=== PATIENT | female | born 1975 | race Caucasian/White ===

== ENCOUNTER 2017-12-26 20:12 | Emergency (ER) | payer MEDICARE, MEDICAID ==
[~2017-12-26] VITALS: Ht 167.6 cm; Wt 113.0 kg
[~2017-12-26 20:12] MED LIST: CLIN-79 PO; CLIN-80 PO; CYCL-1 PO; ESOM40CA30 PO; ONDA4TAB12 PO; ONDA4TAB6 PO; PANT40TA4 PO
[2017-12-26] MEDS ORDERED: AZIT-63 PO (21:52)
[2017-12-26] MEDS ORDERED: AFRIN NS (21:52)
[2017-12-26 22:00] VITALS: BP 149/97
== END 2017-12-26 22:03 | disposition home or self-care (01) ==
LOC: ER 20:13
DX: R05 Cough (principal); R09.81 Nasal congestion; R50.9 Fever, unspecified; E86.0 Dehydration; J45.909 Unspecified asthma, uncomplicated; M19.90 Unspecified osteoarthritis, unspecified site; Z86.73 Personal history of transient ischemic attack (TIA), and cerebral infarction without residual deficits; Z87.442 Personal history of urinary calculi; Z86.14 Personal history of Methicillin resistant Staphylococcus aureus infection; Z90.710 Acquired absence of both cervix and uterus; Z88.1 Allergy status to other antibiotic agents; Z88.5 Allergy status to narcotic agent; Z88.2 Allergy status to sulfonamides; Z79.899 Other long term (current) drug therapy
CPT/HCPCS: 99283

== ENCOUNTER 2018-02-28 21:38 | Emergency (ER) | payer MEDICARE, MEDICAID ==
[~2018-02-28] VITALS: Ht 167.6 cm; Wt 109.2 kg
[2018-02-28 21:54] VITALS: BP 119/79
[2018-02-28] MEDS ORDERED: CLIN300C53 PO (22:31)
== END 2018-02-28 22:39 | disposition home or self-care (01) ==
LOC: ER 21:39
DX: L02.413 Cutaneous abscess of right upper limb (principal); J45.909 Unspecified asthma, uncomplicated; M19.90 Unspecified osteoarthritis, unspecified site; Z86.14 Personal history of Methicillin resistant Staphylococcus aureus infection; Z87.442 Personal history of urinary calculi; Z86.73 Personal history of transient ischemic attack (TIA), and cerebral infarction without residual deficits; Z90.710 Acquired absence of both cervix and uterus; Z88.5 Allergy status to narcotic agent; Z88.2 Allergy status to sulfonamides; Z88.8 Allergy status to other drugs, medicaments and biological substances; Z79.899 Other long term (current) drug therapy
CPT/HCPCS: 99283

== ENCOUNTER 2018-03-02 20:11 | Emergency (ER) | payer MEDICARE, MEDICAID ==
[~2018-03-02 20:11] MED LIST changes: +CLIN300C53 PO
[2018-03-02 20:27] VITALS: BP 148/88
[2018-03-02] MEDS ORDERED: naproxen 500mg tablet PO ONE (22:50)
[2018-03-02] MEDS ORDERED: acetaminophen 325mg tablet PO ONE (22:50)
[2018-03-02] MEDS ORDERED: BUPIVAcaine/PF 2.5 mg/ml (0.25%) 30ml vial IJ ONE (22:50)
== END 2018-03-02 23:36 | disposition home or self-care (01) ==
LOC: ER 20:12
DX: L02.413 Cutaneous abscess of right upper limb (principal); J45.909 Unspecified asthma, uncomplicated; Z86.14 Personal history of Methicillin resistant Staphylococcus aureus infection; Z86.73 Personal history of transient ischemic attack (TIA), and cerebral infarction without residual deficits; Z90.710 Acquired absence of both cervix and uterus; Z88.2 Allergy status to sulfonamides; Z88.5 Allergy status to narcotic agent; Z88.1 Allergy status to other antibiotic agents; Z79.899 Other long term (current) drug therapy
CPT/HCPCS: 10060; 99283; A6449; J3490

== ENCOUNTER 2018-03-03 20:29 | Emergency (ER) | payer MEDICARE, MEDICAID ==
[~2018-03-03] VITALS: Ht 167.6 cm; Wt 111.4 kg
[2018-03-03 21:12] LABS: BASOPHILS % (AUTO) 0 % (0-1); EOSINOPHILS % (AUTO) 0 % (0-6); HEMATOCRIT 37.8 % (35.0-45.0); HEMOGLOBIN 13.3 g/dl (12.0-16.0); LYMPHOCYTES # (AUTO) 1.2 X10'3 (1.1-4.8); LYMPHOCYTES % (AUTO) 12.9 % (21-51); MEAN CORPUSCULAR HEMOGLOBIN 32.6 PG (27.0-31.0); MEAN CORPUSCULAR HGB CONC 35.1 % (33.0-36.5); MEAN CORPUSCULAR VOLUME 92.8 FL (78-98); MEAN PLATELET VOLUME 8.9 FL (7.4-10.4); MONOCYTES # (AUTO) 0.3 X10'3 (0-0.9); MONOCYTES % (AUTO) 2.7 % (2-12); NEUTROPHILS # (AUTO) 8.1 X10'3 (1.8-7.7); NEUTROPHILS % (AUTO) 84.4 % (42-75); PLATELET COUNT 211 X10'3 (140-440); RED BLOOD COUNT 4.07 X10'6 (4.20-5.60); RED CELL DISTRIBUTION WIDTH 12.9 % (11.5-14.5); WHITE BLOOD COUNT 9.6 X10'3 (4.5-11.0)
[2018-03-03 21:24] LABS: PARTIAL THROMBOPLASTIN TIME 30 SECONDS (22-32); PROTHROMBIN TIME 10.7 SECONDS (9.0-12.0)
[2018-03-03 21:27] LABS: ALANINE AMINOTRANSFERASE 19 U/L (12-78); ALBUMIN 3.7 G/DL (3.4-5.0); ALBUMIN/GLOBULIN RATIO 1.1 (1.1-1.5); ALKALINE PHOSPHATASE 57 IU/L (46-116); ANION GAP 11 (8-16); ASPARTATE AMINO TRANSFERASE 11 U/L (10-37); BILIRUBIN,TOTAL 0.5 MG/DL (0.1-1.0); BLOOD UREA NITROGEN 11 MG/DL (7-18); BUN/CREATININE RATIO 10.4 (6.6-38.0); CALCIUM 8.6 MG/DL (8.5-10.1); CHLORIDE 105 MMOL/L (99-107); CREATININE 1.06 MG/DL (0.40-0.90); GLUCOSE 128 MG/DL (70-104); POTASSIUM 3.9 MMOL/L (3.5-5.1); SODIUM 139 MMOL/L (135-145); TOTAL CARBON DIOXIDE 23.3 MMOL/L (24-32); TOTAL PROTEIN 7.1 G/DL (6.4-8.2); eGFR 57 ML/MIN
[2018-03-04 00:12] VITALS: BP 123/61
== END 2018-03-04 01:24 | disposition home or self-care (01) ==
LOC: ER 20:30
DX: L02.413 Cutaneous abscess of right upper limb (principal); J45.909 Unspecified asthma, uncomplicated; M19.90 Unspecified osteoarthritis, unspecified site; Z86.14 Personal history of Methicillin resistant Staphylococcus aureus infection; Z87.442 Personal history of urinary calculi; Z86.73 Personal history of transient ischemic attack (TIA), and cerebral infarction without residual deficits; Z90.710 Acquired absence of both cervix and uterus; Z88.0 Allergy status to penicillin; Z88.2 Allergy status to sulfonamides; Z88.5 Allergy status to narcotic agent; Z79.899 Other long term (current) drug therapy
CPT/HCPCS: 36415; 71045; 80053; 83605; 84145; 85025; 85610; 85730; 87040; 99285

== ENCOUNTER 2018-05-29 19:12 | Emergency (ER) | payer MEDICARE, MEDICAID ==
[~2018-05-29] VITALS: Ht 167.6 cm; Wt 113.7 kg
[~2018-05-29 19:12] MED LIST changes: -CLIN-79 PO; -CLIN-80 PO; +CLIN150C8 PO; -CLIN300C53 PO; +CLIN300C85 PO
[2018-05-29 19:47] LABS: BASOPHILS % (AUTO) 0.2 % (0-1); EOSINOPHILS % (AUTO) 0 % (0-6); HEMATOCRIT 39.6 % (35.0-45.0); HEMOGLOBIN 13.7 g/dl (12.0-16.0); LYMPHOCYTES # (AUTO) 2.6 X10'3 (1.1-4.8); LYMPHOCYTES % (AUTO) 29.2 % (21-51); MEAN CORPUSCULAR HEMOGLOBIN 32.2 PG (27.0-31.0); MEAN CORPUSCULAR HGB CONC 34.7 % (33.0-36.5); MEAN PLATELET VOLUME 9.1 FL (7.4-10.4); MONOCYTES # (AUTO) 0.4 X10'3 (0-0.9); MONOCYTES % (AUTO) 4.2 % (2-12); NEUTROPHILS # (AUTO) 5.9 X10'3 (1.8-7.7); NEUTROPHILS % (AUTO) 66.4 % (42-75); PLATELET COUNT 235 X10'3 (140-440); RED BLOOD COUNT 4.26 X10'6 (4.20-5.60); RED CELL DISTRIBUTION WIDTH 13.2 % (11.5-14.5); WHITE BLOOD COUNT 8.8 X10'3 (4.5-11.0)
[2018-05-29 19:58] LABS: CLARITY,URINE CLEAR (Clear); COLOR,URINE YELLOW (Yellow); GLUCOSE, URINE NEGATIVE (Neg); KETONES,URINE NEGATIVE (Neg); LEUKOCYTE ESTERASE ,URINE NEGATIVE (Neg); NITRITES, URINE NEGATIVE (Neg); OCCULT BLOOD,URINE NEGATIVE (Neg); PH,URINE 6.5 (4.8-8.0); PROTEIN,URINE NEGATIVE (Neg); UROBILINOGEN,URINE 0.2 E.U/dL (0.2-1.0)
[2018-05-29 19:59] LABS: UA COLLECTION TYPE CLN CATCH MIDSTREAM
[2018-05-29] MEDS ORDERED: normal saline 1000ML IV soln IVB ONE (20:00)
[2018-05-29] MEDS ORDERED: ondansetron/PF 4mg/2ml inj IV ONE (20:00)
[2018-05-29] MEDS ORDERED: ketorolac trometh. 30mg/ml inj. IV ONE (20:00)
[2018-05-29 20:02] LABS: ALANINE AMINOTRANSFERASE 28 U/L (12-78); ALBUMIN/GLOBULIN RATIO 1.3 (1.1-1.5); ALKALINE PHOSPHATASE 53 IU/L (46-116); ANION GAP 8 (8-16); ASPARTATE AMINO TRANSFERASE 18 U/L (10-37); BILIRUBIN,TOTAL 0.3 MG/DL (0.1-1.0); BLOOD UREA NITROGEN 12 MG/DL (7-18); BUN/CREATININE RATIO 11.5 (6.6-38.0); CALCIUM 9.3 MG/DL (8.5-10.1); CHLORIDE 106 MMOL/L (99-107); CREATININE 1.04 MG/DL (0.40-0.90); GLUCOSE 92 MG/DL (70-104); SODIUM 139 MMOL/L (135-145); TOTAL CARBON DIOXIDE 24.9 MMOL/L (24-32); TOTAL PROTEIN 7.1 G/DL (6.4-8.2); eGFR 58 ML/MIN
[2018-05-29 20:13] LABS: PROTHROMBIN TIME 10.5 SECONDS (9.0-12.0)
[2018-05-29] MEDS ORDERED: HYDR-565 PO (21:38)
[2018-05-29] MEDS ORDERED: HYDROcodone/acetaminophen 10/325mg tab PO ONE (21:40)
[2018-05-29 21:45] VITALS: BP 162/71
== END 2018-05-29 21:53 | disposition home or self-care (01) ==
LOC: ER 19:12
DX: R10.11 Right upper quadrant pain (principal); F31.9 Bipolar disorder, unspecified; J45.909 Unspecified asthma, uncomplicated; Z90.710 Acquired absence of both cervix and uterus; Z98.890 Other specified postprocedural states; Z88.5 Allergy status to narcotic agent; Z88.8 Allergy status to other drugs, medicaments and biological substances; Z88.1 Allergy status to other antibiotic agents; Z79.2 Long term (current) use of antibiotics; Z79.899 Other long term (current) drug therapy
CPT/HCPCS: 36415; 76700; 80053; 81003; 85025; 85610; 96374; 96375; 99285; J1885; J2405; J7030

== ENCOUNTER 2018-11-18 08:56 | Emergency (ER) | payer MEDICARE, MEDICAID ==
[~2018-11-18] VITALS: Ht 167.6 cm; Wt 114.0 kg
[2018-11-18 09:07] VITALS: BP 147/92
[2018-11-18 09:30] LABS: URINE HCG NEGATIVE (NEG)
[2018-11-18 09:31] LABS: CLARITY,URINE CLEAR (Clear); COLOR,URINE YELLOW (Yellow); GLUCOSE, URINE NEGATIVE (Neg); KETONES,URINE TRACE mg/dl (Neg); LEUKOCYTE ESTERASE ,URINE NEGATIVE (Neg); NITRITES, URINE NEGATIVE (Neg); OCCULT BLOOD,URINE MODERATE (Neg); PROTEIN,URINE NEGATIVE (Neg); UROBILINOGEN,URINE 0.2 E.U/dL (0.2-1.0)
[2018-11-18 09:32] LABS: UA COLLECTION TYPE CLN CATCH MIDSTREAM
[2018-11-18 09:43] LABS: MUCUS STRANDS MANY /LPF (Neg); SQUAMOUS EPITHELIAL CELL,UR MANY /LPF (FEW)
[2018-11-18 09:44] LABS: BACTERIA,URINE 1+ /HPF (Neg); WBC,URINE 0-4 /HPF (0-4)
[2018-11-18] MEDS ORDERED: ketorolac tromethamine 15mg/ml inj. IV ONE (10:05)
[2018-11-18] MEDS ORDERED: normal saline 1000ml 1,000 ML IV ONE (10:05)
[2018-11-18] MEDS ORDERED: IBUP-1985 PO (11:14)
[2018-11-18] MEDS ORDERED: FLO0.4C PO (11:14)
== END 2018-11-18 11:27 | disposition home or self-care (01) ==
LOC: ER 08:57
DX: N20.0 Calculus of kidney (principal); Z87.442 Personal history of urinary calculi; J45.909 Unspecified asthma, uncomplicated; M19.90 Unspecified osteoarthritis, unspecified site; Z86.14 Personal history of Methicillin resistant Staphylococcus aureus infection; Z86.73 Personal history of transient ischemic attack (TIA), and cerebral infarction without residual deficits; Z90.710 Acquired absence of both cervix and uterus; Z88.1 Allergy status to other antibiotic agents; Z88.5 Allergy status to narcotic agent; Z88.2 Allergy status to sulfonamides; Z79.899 Other long term (current) drug therapy
CPT/HCPCS: 74176; 81001; 81025; 96374; 99284; J1885; J7030

== ENCOUNTER 2018-12-03 14:22 | Emergency (ER) | payer MEDICARE, MEDICAID ==
[~2018-12-03] VITALS: Ht 167.6 cm; Wt 114.0 kg
[~2018-12-03 14:22] MED LIST changes: +FLO0.4C PO; +IBUP-1985 PO
[2018-12-03 14:32] VITALS: BP 119/86
[2018-12-03 15:11] LABS: BASOPHILS % (AUTO) 0.2 % (0-1); EOSINOPHILS % (AUTO) 0.4 % (0-6); HEMATOCRIT 40.7 % (35.0-45.0); HEMOGLOBIN 14.1 g/dl (12.0-16.0); LYMPHOCYTES # (AUTO) 2.2 X10'3 (1.1-4.8); LYMPHOCYTES % (AUTO) 23.2 % (21-51); MEAN CORPUSCULAR HEMOGLOBIN 32.2 PG (27.0-31.0); MEAN CORPUSCULAR HGB CONC 34.5 % (33.0-36.5); MEAN CORPUSCULAR VOLUME 93.3 FL (78-98); MEAN PLATELET VOLUME 8.7 FL (7.4-10.4); MONOCYTES # (AUTO) 0.4 X10'3 (0-0.9); MONOCYTES % (AUTO) 3.8 % (2-12); NEUTROPHILS # (AUTO) 6.9 X10'3 (1.8-7.7); NEUTROPHILS % (AUTO) 72.4 % (42-75); PLATELET COUNT 272 X10'3 (140-440); RED BLOOD COUNT 4.36 X10'6 (4.20-5.60); RED CELL DISTRIBUTION WIDTH 12.4 % (11.5-14.5); WHITE BLOOD COUNT 9.6 X10'3 (4.5-11.0)
[2018-12-03 15:23] LABS: PROTHROMBIN TIME 10.5 SECONDS (9.0-12.0)
[2018-12-03 15:26] LABS: ALANINE AMINOTRANSFERASE 24 U/L (12-78); ALBUMIN 3.7 G/DL (3.4-5.0); ALBUMIN/GLOBULIN RATIO 1.1 (1.1-1.5); ALKALINE PHOSPHATASE 55 IU/L (46-116); ANION GAP 7 (8-16); ASPARTATE AMINO TRANSFERASE 13 U/L (10-37); BILIRUBIN,TOTAL 0.3 MG/DL (0.1-1.0); BLOOD UREA NITROGEN 10 MG/DL (7-18); BUN/CREATININE RATIO 9.9 (6.6-38.0); CALCIUM 8.4 MG/DL (8.5-10.1); CHLORIDE 105 MMOL/L (99-107); CREATININE 1.01 MG/DL (0.40-0.90); GLUCOSE 79 MG/DL (70-104); SODIUM 140 MMOL/L (135-145); TOTAL CARBON DIOXIDE 28.4 MMOL/L (24-32); eGFR 60 ML/MIN
[2018-12-03 15:38] LABS: URINE HCG NEGATIVE (NEG)
[2018-12-03 15:39] LABS: CLARITY,URINE SLIGHTLY CLOUDY (Clear); COLOR,URINE YELLOW (Yellow); GLUCOSE, URINE NEGATIVE (Neg); KETONES,URINE TRACE mg/dl (Neg); LEUKOCYTE ESTERASE ,URINE NEGATIVE (Neg); NITRITES, URINE NEGATIVE (Neg); OCCULT BLOOD,URINE LARGE (Neg); PROTEIN,URINE NEGATIVE (Neg); UROBILINOGEN,URINE 0.2 E.U/dL (0.2-1.0)
[2018-12-03 15:40] LABS: UA COLLECTION TYPE CLN CATCH MIDSTREAM
[2018-12-03 15:48] LABS: MUCUS STRANDS MODERATE /LPF (Neg); SQUAMOUS EPITHELIAL CELL,UR MANY /LPF (FEW)
[2018-12-03 15:53] LABS: RBC,URINE TNTC /HPF (0-2)
[2018-12-03 15:56] LABS: BACTERIA,URINE 1+ /HPF (Neg)
[2018-12-03 15:57] LABS: WBC,URINE 0-4 /HPF (0-4)
[2018-12-03] MEDS ORDERED: ketorolac tromethamine 15mg/ml inj. IM ONE (16:50)
[2018-12-03] MEDS ORDERED: HYDROcodone/acetaminophen 10/325mg tab PO ONE (17:35)
[2018-12-03] MEDS ORDERED: FLO0.4C PO (17:35)
== END 2018-12-03 17:59 | disposition home or self-care (01) ==
LOC: ER 14:22
DX: N20.0 Calculus of kidney (principal); Z87.442 Personal history of urinary calculi; J45.909 Unspecified asthma, uncomplicated; M19.90 Unspecified osteoarthritis, unspecified site; Z86.14 Personal history of Methicillin resistant Staphylococcus aureus infection; Z86.73 Personal history of transient ischemic attack (TIA), and cerebral infarction without residual deficits; Z90.710 Acquired absence of both cervix and uterus; Z88.2 Allergy status to sulfonamides; Z88.1 Allergy status to other antibiotic agents; Z88.5 Allergy status to narcotic agent; Z79.899 Other long term (current) drug therapy
CPT/HCPCS: 36415; 80053; 81001; 81025; 85025; 85610; 96372; 99283; J1885

== ENCOUNTER 2018-12-05 21:54 | Emergency (ER) | payer MEDICARE, MEDICAID ==
[~2018-12-05] VITALS: Ht 167.6 cm; Wt 113.5 kg
[2018-12-05 22:05] VITALS: BP 144/90
[2018-12-05] MEDS ORDERED: fentaNYL/PF 50MCG/1 ML 2ML syringe IV ONE (22:20)
[2018-12-05] MEDS ORDERED: normal saline 1000ML IV soln IVB ONE (22:20)
[2018-12-05] MEDS ORDERED: ondansetron/PF 4mg/2ml inj IV ONE (22:20)
[2018-12-05] MEDS ORDERED: ketorolac tromethamine 15mg/ml inj. IV ONE (22:30)
[2018-12-05 22:33] LABS: CLARITY,URINE CLOUDY (Clear); GLUCOSE, URINE NEGATIVE (Neg); KETONES,URINE TRACE mg/dl (Neg); LEUKOCYTE ESTERASE ,URINE TRACE (Neg); OCCULT BLOOD,URINE LARGE (Neg); PROTEIN,URINE 100 mg/dl (Neg)
[2018-12-05 22:41] LABS: UA COLLECTION TYPE NON-SPECIFIED
[2018-12-05 22:42] LABS: COLOR,URINE DARK YELLOW (Yellow); NITRITES, URINE NEGATIVE (Neg)
[2018-12-05 22:42] LABS: BASOPHILS # (AUTO) 0.1 X10'3 (0-0.2); BASOPHILS % (AUTO) 0.5 % (0-1); EOSINOPHILS # (AUTO) 0.1 X10'3 (0-0.9); EOSINOPHILS % (AUTO) 0.6 % (0-6); HEMATOCRIT 41.2 % (35.0-45.0); HEMOGLOBIN 14.1 g/dl (12.0-16.0); LYMPHOCYTES # (AUTO) 3.2 X10'3 (1.1-4.8); MEAN CORPUSCULAR HEMOGLOBIN 31.9 PG (27.0-31.0); MEAN CORPUSCULAR HGB CONC 34.3 % (33.0-36.5); MEAN CORPUSCULAR VOLUME 93.1 FL (78-98); MEAN PLATELET VOLUME 8.7 FL (7.4-10.4); MONOCYTES # (AUTO) 0.4 X10'3 (0-0.9); MONOCYTES % (AUTO) 4.2 % (2-12); NEUTROPHILS # (AUTO) 6.9 X10'3 (1.8-7.7); NEUTROPHILS % (AUTO) 64.7 % (42-75); PLATELET COUNT 299 X10'3 (140-440); RED BLOOD COUNT 4.43 X10'6 (4.20-5.60); RED CELL DISTRIBUTION WIDTH 12.4 % (11.5-14.5); WHITE BLOOD COUNT 10.6 X10'3 (4.5-11.0)
[2018-12-05 22:43] LABS: BACTERIA,URINE FEW /HPF (Neg); MUCUS STRANDS FEW /LPF (Neg); RBC,URINE TNTC /HPF (0-2); SQUAMOUS EPITHELIAL CELL,UR FEW /LPF (FEW)
[2018-12-05 22:47] LABS: ALANINE AMINOTRANSFERASE 20 U/L (12-78); ALBUMIN 3.8 G/DL (3.4-5.0); ALBUMIN/GLOBULIN RATIO 1.1 (1.1-1.5); ALKALINE PHOSPHATASE 56 IU/L (46-116); ANION GAP 13 (8-16); ASPARTATE AMINO TRANSFERASE 12 U/L (10-37); BILIRUBIN,TOTAL 0.2 MG/DL (0.1-1.0); BLOOD UREA NITROGEN 12 MG/DL (7-18); BUN/CREATININE RATIO 11.5 (6.6-38.0); CALCIUM 8.7 MG/DL (8.5-10.1); CHLORIDE 106 MMOL/L (99-107); CREATININE 1.04 MG/DL (0.40-0.90); GLUCOSE 133 MG/DL (70-104); POTASSIUM 3.8 MMOL/L (3.5-5.1); SODIUM 141 MMOL/L (135-145); TOTAL CARBON DIOXIDE 21.7 MMOL/L (24-32); TOTAL PROTEIN 7.2 G/DL (6.4-8.2); eGFR 58 ML/MIN
[2018-12-05] MEDS ORDERED: HYDROcodone/acetaminophen 10/325mg tab PO ONE (23:15)
[2018-12-05] MEDS ORDERED: FLO0.4C PO (23:32)
[2018-12-05] MEDS ORDERED: CIPR-259 PO (23:32)
[2018-12-05] MEDS ORDERED: HYDR-3965 PO (23:32)
== END 2018-12-05 23:49 | disposition home or self-care (01) ==
LOC: ER 21:55
DX: N23 Unspecified renal colic (principal); Z87.442 Personal history of urinary calculi; J45.909 Unspecified asthma, uncomplicated; M19.90 Unspecified osteoarthritis, unspecified site; Z86.73 Personal history of transient ischemic attack (TIA), and cerebral infarction without residual deficits; Z86.14 Personal history of Methicillin resistant Staphylococcus aureus infection; Z90.710 Acquired absence of both cervix and uterus; Z88.2 Allergy status to sulfonamides; Z88.5 Allergy status to narcotic agent; Z88.1 Allergy status to other antibiotic agents; Z79.899 Other long term (current) drug therapy
CPT/HCPCS: 36415; 80053; 81001; 85025; 87088; 96374; 96375; 99283; J1885; J2405; J3010; J7030

== ENCOUNTER 2019-02-10 07:58 | Emergency (ER) | payer MEDICARE, MEDICAID ==
[~2019-02-10] VITALS: Ht 167.6 cm; Wt 113.0 kg
[~2019-02-10 07:58] MED LIST changes: +CLIN-96 PO; -CLIN300C85 PO; -FLO0.4C PO
[2019-02-10 08:52] LABS: CLARITY,URINE CLOUDY (Clear); COLOR,URINE YELLOW (Yellow); GLUCOSE, URINE NEGATIVE (Neg); KETONES,URINE TRACE mg/dl (Neg); LEUKOCYTE ESTERASE ,URINE NEGATIVE (Neg); NITRITES, URINE NEGATIVE (Neg); OCCULT BLOOD,URINE NEGATIVE (Neg); PH,URINE 8.5 (4.8-8.0); PROTEIN,URINE TRACE mg/dl (Neg); UROBILINOGEN,URINE 0.2 E.U/dL (0.2-1.0)
[2019-02-10 08:57] LABS: UA COLLECTION TYPE CLN CATCH MIDSTREAM
[2019-02-10 08:59] LABS: RBC,URINE NONE SEEN /HPF (0-2); WBC,URINE 0-4 /HPF (0-4)
[2019-02-10 09:00] LABS: BACTERIA,URINE 1+ /HPF (Neg); SQUAMOUS EPITHELIAL CELL,UR MANY /LPF (FEW)
[2019-02-10 09:06] LABS: URINE HCG NEGATIVE (NEG)
[2019-02-10 09:06] LABS: BASOPHILS % (AUTO) 0.2 % (0-1); EOSINOPHILS % (AUTO) 0 % (0-6); HEMATOCRIT 41.1 % (35.0-45.0); HEMOGLOBIN 14.3 g/dl (12.0-16.0); LYMPHOCYTES # (AUTO) 0.5 X10'3 (1.1-4.8); LYMPHOCYTES % (AUTO) 5.6 % (21-51); MEAN CORPUSCULAR HEMOGLOBIN 32.1 PG (27.0-31.0); MEAN CORPUSCULAR HGB CONC 34.8 g/dL (33.0-36.5); MEAN CORPUSCULAR VOLUME 92.2 FL (78-98); MONOCYTES # (AUTO) 0.4 X10'3 (0-0.9); MONOCYTES % (AUTO) 4.9 % (2-12); NEUTROPHILS # (AUTO) 7.3 X10'3 (1.8-7.7); NEUTROPHILS % (AUTO) 89.3 % (42-75); PLATELET COUNT 194 X10'3 (140-440); RED BLOOD COUNT 4.46 X10'6 (4.20-5.60); WHITE BLOOD COUNT 8.1 X10'3 (4.5-11.0)
[2019-02-10 09:29] LABS: PROTHROMBIN TIME 10.4 SECONDS (9.0-12.0)
[2019-02-10 09:31] LABS: ALANINE AMINOTRANSFERASE 21 U/L (12-78); ALBUMIN 3.6 G/DL (3.4-5.0); ALBUMIN/GLOBULIN RATIO 1.3 (1.1-1.5); ALKALINE PHOSPHATASE 50 IU/L (46-116); ANION GAP 9 (8-16); ASPARTATE AMINO TRANSFERASE 13 U/L (10-37); BILIRUBIN,TOTAL 0.4 MG/DL (0.1-1.0); BLOOD UREA NITROGEN 13 MG/DL (7-18); BUN/CREATININE RATIO 14.3 (6.6-38.0); CALCIUM 8.6 MG/DL (8.5-10.1); CHLORIDE 105 MMOL/L (99-107); CREATININE 0.91 MG/DL (0.40-0.90); GLUCOSE 118 MG/DL (70-104); SODIUM 139 MMOL/L (135-145); TOTAL PROTEIN 6.4 G/DL (6.4-8.2); eGFR 67 ML/MIN
[2019-02-10] MEDS ORDERED: ondansetron/PF 4mg/2ml inj IV ONE ×2 (09:35→09:55)
[2019-02-10] MEDS ORDERED: normal saline 1000ML IV soln IVB ONE ×2 (09:35→09:55)
[2019-02-10] MEDS ORDERED: HYDROmorphone 1 mg/ml syringe IV ONE (09:55)
[2019-02-10] MEDS ORDERED: ONDA4TAB6 PO (10:42)
[2019-02-10 11:10] VITALS: BP 149/84
[2019-02-10 11:59] LABS: LIPASE 75 U/L (73-393)
== END 2019-02-10 11:12 | disposition home or self-care (01) ==
LOC: ER 07:59
DX: K52.9 Noninfective gastroenteritis and colitis, unspecified (principal); I88.0 Nonspecific mesenteric lymphadenitis; R00.0 Tachycardia, unspecified; J45.909 Unspecified asthma, uncomplicated; M19.90 Unspecified osteoarthritis, unspecified site; Z88.1 Allergy status to other antibiotic agents; Z88.2 Allergy status to sulfonamides; Z88.6 Allergy status to analgesic agent; Z79.899 Other long term (current) drug therapy; Z86.73 Personal history of transient ischemic attack (TIA), and cerebral infarction without residual deficits; Z86.718 Personal history of other venous thrombosis and embolism; Z86.14 Personal history of Methicillin resistant Staphylococcus aureus infection; Z87.42 Personal history of other diseases of the female genital tract; Z87.442 Personal history of urinary calculi; Z90.710 Acquired absence of both cervix and uterus; Z98.890 Other specified postprocedural states
CPT/HCPCS: 36415; 74176; 80053; 81001; 81025; 83690; 85025; 85610; 96361; 96374; 96375; 99284; J1170; J2405; J7030

== ENCOUNTER 2019-09-19 02:49 | Emergency (ER) | payer MEDICARE, MEDICAID ==
[~2019-09-19] VITALS: Ht 167.6 cm; Wt 113.0 kg
[~2019-09-19 02:49] MED LIST changes: +CLIN-90 PO; -CLIN-96 PO; -ESOM40CA30 PO; +ESOM40CA49 PO
[2019-09-19] MEDS ORDERED: ketorolac trometh. 30mg/ml inj. IM ONE (03:05)
[2019-09-19] MEDS ORDERED: IBUP-1984 PO (03:28)
[2019-09-19 03:56] VITALS: BP 146/92
== END 2019-09-19 03:58 | disposition home or self-care (01) ==
LOC: ER 02:50
DX: M25.511 Pain in right shoulder (principal); J45.909 Unspecified asthma, uncomplicated; M19.90 Unspecified osteoarthritis, unspecified site; Z86.73 Personal history of transient ischemic attack (TIA), and cerebral infarction without residual deficits; Z98.890 Other specified postprocedural states; Z90.710 Acquired absence of both cervix and uterus; Z87.442 Personal history of urinary calculi; Z79.899 Other long term (current) drug therapy; Z88.2 Allergy status to sulfonamides; Z88.5 Allergy status to narcotic agent; Z88.1 Allergy status to other antibiotic agents
CPT/HCPCS: 73030; 96372; 99283; J1885

== ENCOUNTER 2019-12-25 16:21 | Emergency (ER) | payer MEDICARE, MEDICAID ==
[~2019-12-25] VITALS: Ht 167.6 cm; Wt 122.3 kg
[2019-12-25 16:26] VITALS: BP 149/74
[2019-12-25] MEDS ORDERED: DOXY100C76 PO (17:56)
== END 2019-12-25 18:24 | disposition home or self-care (01) ==
LOC: ER 16:22
DX: L03.314 Cellulitis of groin (principal); J45.909 Unspecified asthma, uncomplicated; M19.90 Unspecified osteoarthritis, unspecified site; Z98.890 Other specified postprocedural states; Z90.710 Acquired absence of both cervix and uterus; Z86.73 Personal history of transient ischemic attack (TIA), and cerebral infarction without residual deficits; Z86.14 Personal history of Methicillin resistant Staphylococcus aureus infection; Z88.2 Allergy status to sulfonamides; Z88.1 Allergy status to other antibiotic agents; Z88.5 Allergy status to narcotic agent; Z79.899 Other long term (current) drug therapy
CPT/HCPCS: 99283

== ENCOUNTER 2020-01-17 19:16 | Emergency (ER) | payer MEDICARE, MEDICAID ==
[~2020-01-17] VITALS: Ht 167.6 cm; Wt 118.2 kg
[~2020-01-17 19:16] MED LIST changes: -CLIN-90 PO; +CLIN-97 PO
[2020-01-17] MEDS ORDERED: ipratropium/albuterol 3ml nebule NEB ONE (19:50)
[2020-01-17] MEDS ORDERED: predniSONE 20 mg tablet PO ONE (19:50)
[2020-01-17] MEDS ORDERED: normal saline 1000ML IV soln IVB ONE (19:50)
[2020-01-17] MEDS ORDERED: benzonatate 100mg capsule PO ONE (19:50)
[2020-01-17] MEDS ORDERED: oseltamivir phos 75mg capsule PO ONE (19:50)
--- NOTE | 2020-01-17 20:00 | NUR ---
chest x ray at bedside complete
[2020-01-17 20:10] LABS: BASOPHILS % (AUTO) 0.4 % (0-1); EOSINOPHILS % (AUTO) 0 % (0-6); HEMATOCRIT 38.1 % (35.0-45.0); HEMOGLOBIN 13.2 g/dl (12.0-16.0); LYMPHOCYTES # (AUTO) 0.6 X10'3 (1.1-4.8); LYMPHOCYTES % (AUTO) 8.4 % (21-51); MEAN CORPUSCULAR HGB CONC 34.7 g/dL (33.0-36.5); MEAN CORPUSCULAR VOLUME 92.2 FL (78-98); MEAN PLATELET VOLUME 8.5 FL (7.4-10.4); MONOCYTES # (AUTO) 0.4 X10'3 (0-0.9); MONOCYTES % (AUTO) 5.3 % (2-12); NEUTROPHILS # (AUTO) 5.9 X10'3 (1.8-7.7); NEUTROPHILS % (AUTO) 85.9 % (42-75); PLATELET COUNT 234 X10'3 (140-440); RED BLOOD COUNT 4.13 X10'6 (4.20-5.60); RED CELL DISTRIBUTION WIDTH 12.8 % (11.5-14.5); WHITE BLOOD COUNT 6.9 X10'3 (4.5-11.0)
[2020-01-17 20:21] LABS: ALANINE AMINOTRANSFERASE 13 U/L (12-78); ALBUMIN 3.8 G/DL (3.4-5.0); ALBUMIN/GLOBULIN RATIO 1.2 (1.1-1.5); ALKALINE PHOSPHATASE 57 IU/L (46-116); ANION GAP 9 (8-16); ASPARTATE AMINO TRANSFERASE 9 U/L (10-37); BILIRUBIN,TOTAL 0.2 MG/DL (0.1-1.0); BLOOD UREA NITROGEN 11 MG/DL (7-18); BUN/CREATININE RATIO 9.1 (6.6-38.0); CALCIUM 8.9 MG/DL (8.5-10.1); CHLORIDE 104 MMOL/L (99-107); CREATININE 1.21 MG/DL (0.40-0.90); GLUCOSE 115 MG/DL (70-104); POTASSIUM 3.7 MMOL/L (3.5-5.1); SODIUM 137 MMOL/L (135-145); TOTAL CARBON DIOXIDE 24.5 MMOL/L (24-32); TOTAL PROTEIN 6.9 G/DL (6.4-8.2); eGFR 48 ML/MIN
--- NOTE | 2020-01-17 20:29 | NUR ---
reported to YANY Mccollum that patients temp is at 99.7
[2020-01-17 20:34] LABS: URINE HCG NEGATIVE (NEG)
[2020-01-17 20:37] LABS: CLARITY,URINE CLEAR (Clear); COLOR,URINE YELLOW (Yellow); GLUCOSE, URINE NEGATIVE (Neg); KETONES,URINE NEGATIVE (Neg); LEUKOCYTE ESTERASE ,URINE NEGATIVE (Neg); NITRITES, URINE NEGATIVE (Neg); OCCULT BLOOD,URINE NEGATIVE (Neg); PROTEIN,URINE NEGATIVE (Neg); UROBILINOGEN,URINE 0.2 E.U/dL (0.2-1.0)
[2020-01-17 20:39] LABS: UA COLLECTION TYPE CLN CATCH MIDSTREAM
[2020-01-17] MEDS ORDERED: ALBU8.5H8 IH (20:45)
[2020-01-17] MEDS ORDERED: BENZ-16 PO (20:45)
[2020-01-17] MEDS ORDERED: PRED20TA PO (20:45)
[2020-01-17] MEDS ORDERED: TAM75C PO (20:45)
[2020-01-17 21:13] VITALS: BP 130/82
== END 2020-01-17 21:00 | disposition home or self-care (01) ==
LOC: ER 19:18
DX: J11.1 Influenza due to unidentified influenza virus with other respiratory manifestations (principal); M19.90 Unspecified osteoarthritis, unspecified site; Z86.73 Personal history of transient ischemic attack (TIA), and cerebral infarction without residual deficits; Z87.442 Personal history of urinary calculi; Z86.14 Personal history of Methicillin resistant Staphylococcus aureus infection; Z98.890 Other specified postprocedural states; Z90.710 Acquired absence of both cervix and uterus
CPT/HCPCS: 36415; 71045; 80053; 81003; 81025; 84145; 85025; 87502; 87503; 94640; 99284; J7030; J7512; 94760

== ENCOUNTER 2020-08-26 14:35 | Emergency (ER) | payer MEDICARE, MEDICAID ==
[~2020-08-26] VITALS: Ht 167.6 cm; Wt 116.0 kg
[~2020-08-26 14:35] MED LIST changes: +ALBU8.5H8 IH; +BENZ-16 PO; -PANT40TA4 PO; +PANT40TA54 PO
--- NOTE | 2020-08-26 16:27 | NUR ---
Patient resting supine in bed without distress. Patient updated on POC.
[2020-08-26] MEDS ORDERED: ketorolac tromethamine 15mg/ml inj. IM ONE (17:05)
[2020-08-26] MEDS ORDERED: CYCL-1 PO (17:10)
[2020-08-26 17:28] VITALS: BP 156/93
== END 2020-08-26 17:29 | disposition home or self-care (01) ==
LOC: ER 14:36
DX: M54.41 Lumbago with sciatica, right side (principal); F41.9 Anxiety disorder, unspecified; F31.9 Bipolar disorder, unspecified; Z86.14 Personal history of Methicillin resistant Staphylococcus aureus infection; Z86.73 Personal history of transient ischemic attack (TIA), and cerebral infarction without residual deficits; Z90.49 Acquired absence of other specified parts of digestive tract; Z90.710 Acquired absence of both cervix and uterus; Z88.2 Allergy status to sulfonamides; Z88.5 Allergy status to narcotic agent; Z79.2 Long term (current) use of antibiotics; Z79.899 Other long term (current) drug therapy
CPT/HCPCS: 96372; 99283; J1885

== ENCOUNTER 2020-09-01 19:47 | Emergency (ER) | payer MEDICARE, MEDICAID ==
[~2020-09-01] VITALS: Ht 167.6 cm; Wt 118.2 kg
[2020-09-01 19:52] VITALS: BP 138/86
[2020-09-01] MEDS ORDERED: ketorolac tromethamine 15mg/ml inj. IM ONE (20:40)
[2020-09-01] MEDS ORDERED: traMADol 50MG tablet PO ONE (21:15)
[2020-09-01] MEDS ORDERED: TRAM50TA2 PO (21:32)
== END 2020-09-01 21:39 | disposition home or self-care (01) ==
LOC: ER 19:48
DX: M54.41 Lumbago with sciatica, right side (principal); I63.9 Cerebral infarction, unspecified; J45.909 Unspecified asthma, uncomplicated; N20.0 Calculus of kidney; M19.90 Unspecified osteoarthritis, unspecified site; F41.9 Anxiety disorder, unspecified; F31.9 Bipolar disorder, unspecified; F32.9 Major depressive disorder, single episode, unspecified; Z88.2 Allergy status to sulfonamides; Z88.1 Allergy status to other antibiotic agents; Z88.5 Allergy status to narcotic agent; Z88.8 Allergy status to other drugs, medicaments and biological substances; Z79.899 Other long term (current) drug therapy; Z98.890 Other specified postprocedural states; W18.39XA Other fall on same level, initial encounter; Y93.89 Activity, other specified; Y92.89 Other specified places as the place of occurrence of the external cause; Y99.8 Other external cause status
CPT/HCPCS: 73502; 96372; 99284; J1885

== ENCOUNTER 2020-09-23 12:11 | Emergency (ER) | payer MEDICARE, MEDICAID ==
[~2020-09-23] VITALS: Ht 167.6 cm; Wt 113.7 kg
[2020-09-23 12:30] VITALS: BP 138/69
[2020-09-23 13:08] LABS: BASOPHILS % (AUTO) 0.2 % (0-1); EOSINOPHILS % (AUTO) 0 % (0-6); HEMATOCRIT 43.1 % (35.0-45.0); HEMOGLOBIN 14.7 g/dl (12.0-16.0); LYMPHOCYTES # (AUTO) 2.1 X10'3 (1.1-4.8); LYMPHOCYTES % (AUTO) 24.8 % (21-51); MEAN CORPUSCULAR HGB CONC 34.1 g/dL (33.0-36.5); MEAN CORPUSCULAR VOLUME 93.8 FL (78-98); MEAN PLATELET VOLUME 8.5 FL (7.4-10.4); MONOCYTES # (AUTO) 0.3 X10'3 (0-0.9); MONOCYTES % (AUTO) 3.9 % (2-12); NEUTROPHILS # (AUTO) 6.1 X10'3 (1.8-7.7); NEUTROPHILS % (AUTO) 71.1 % (42-75); PLATELET COUNT 289 X10'3 (140-440); RED BLOOD COUNT 4.59 X10'6 (4.20-5.60); RED CELL DISTRIBUTION WIDTH 12.6 % (11.5-14.5); WHITE BLOOD COUNT 8.6 X10'3 (4.5-11.0)
[2020-09-23 13:30] LABS: ALANINE AMINOTRANSFERASE 24 U/L (12-78); ALBUMIN 4.1 G/DL (3.4-5.0); ALBUMIN/GLOBULIN RATIO 1.2 (1.1-1.5); ALKALINE PHOSPHATASE 60 IU/L (46-116); ANION GAP 9 (8-16); ASPARTATE AMINO TRANSFERASE 14 U/L (10-37); BILIRUBIN,TOTAL 0.5 MG/DL (0.1-1.0); BLOOD UREA NITROGEN 11 MG/DL (7-18); CALCIUM 9.3 MG/DL (8.5-10.1); CHLORIDE 104 MMOL/L (99-107); GLUCOSE 103 MG/DL (70-104); POTASSIUM 4.6 MMOL/L (3.5-5.1); SODIUM 140 MMOL/L (135-145); TOTAL CARBON DIOXIDE 27.1 MMOL/L (24-32); TOTAL PROTEIN 7.5 G/DL (6.4-8.2); eGFR 60 ML/MIN
== END 2020-09-23 15:34 | disposition home or self-care (01) ==
LOC: ER 12:12
DX: R07.89 Other chest pain (principal); J45.909 Unspecified asthma, uncomplicated; G89.29 Other chronic pain; M54.9 Dorsalgia, unspecified; F41.9 Anxiety disorder, unspecified; F31.9 Bipolar disorder, unspecified; F32.9 Major depressive disorder, single episode, unspecified; Z87.448 Personal history of other diseases of urinary system; Z88.2 Allergy status to sulfonamides; Z88.1 Allergy status to other antibiotic agents; Z88.8 Allergy status to other drugs, medicaments and biological substances
CPT/HCPCS: 36415; 71045; 80053; 83880; 84484; 85025; 93005; 99285

== ENCOUNTER 2021-09-17 21:09 | Emergency (ER) | payer MEDICARE, MEDICAID ==
[~2021-09-17] VITALS: Ht 167.6 cm; Wt 122.7 kg
[~2021-09-17 21:09] MED LIST changes: +ALBU8.5H17 IH; -ALBU8.5H8 IH
[2021-09-17 21:40] LABS: BASOPHILS % (AUTO) 0.1 % (0-1); EOSINOPHILS % (AUTO) 0 % (0-6); HEMATOCRIT 41.6 % (35.0-45.0); HEMOGLOBIN 14.4 g/dl (12.0-16.0); LYMPHOCYTES # (AUTO) 2.5 X10'3 (1.1-4.8); MEAN CORPUSCULAR HEMOGLOBIN 32.7 PG (27.0-31.0); MEAN CORPUSCULAR HGB CONC 34.6 g/dL (33.0-36.5); MEAN CORPUSCULAR VOLUME 94.7 FL (78-98); MEAN PLATELET VOLUME 7.8 FL (7.4-10.4); MONOCYTES # (AUTO) 0.5 X10'3 (0-0.9); MONOCYTES % (AUTO) 5.6 % (2-12); NEUTROPHILS # (AUTO) 5.8 X10'3 (1.8-7.7); NEUTROPHILS % (AUTO) 66.3 % (42-75); PLATELET COUNT 298 X10'3 (140-440); RED BLOOD COUNT 4.39 X10'6 (4.20-5.60); RED CELL DISTRIBUTION WIDTH 12.8 % (11.5-14.5); WHITE BLOOD COUNT 8.8 X10'3 (4.5-11.0)
[2021-09-17 21:59] LABS: ALANINE AMINOTRANSFERASE 28 U/L (12-78); ALBUMIN 3.8 G/DL (3.4-5.0); ALKALINE PHOSPHATASE 67 IU/L (46-116); ANION GAP 8 (8-16); ASPARTATE AMINO TRANSFERASE 7 U/L (10-37); BILIRUBIN,TOTAL 0.2 MG/DL (0.1-1.0); BLOOD UREA NITROGEN 13 MG/DL (7-18); BUN/CREATININE RATIO 11.3 (6.6-38.0); CALCIUM 9.5 MG/DL (8.5-10.1); CHLORIDE 104 MMOL/L (99-107); CREATININE 1.15 MG/DL (0.40-0.90); GLUCOSE 112 MG/DL (70-104); POTASSIUM 3.9 MMOL/L (3.5-5.1); SODIUM 142 MMOL/L (135-145); TOTAL CARBON DIOXIDE 29.9 MMOL/L (24-32); TOTAL PROTEIN 7.5 G/DL (6.4-8.2); eGFR 51 ML/MIN
[2021-09-18] MEDS ORDERED: cloNIDine 0.1 mg tablet PO ONE (00:15)
[2021-09-18 00:24] VITALS: BP 193/118
[2021-09-18] MEDS ORDERED: LISI5TAB22 PO (00:36)
== END 2021-09-18 00:53 | disposition home or self-care (01) ==
LOC: ER 21:10
DX: R07.89 Other chest pain (principal); E78.00 Pure hypercholesterolemia, unspecified; J45.909 Unspecified asthma, uncomplicated; M19.90 Unspecified osteoarthritis, unspecified site; G89.29 Other chronic pain; F41.9 Anxiety disorder, unspecified; F31.9 Bipolar disorder, unspecified; Z86.73 Personal history of transient ischemic attack (TIA), and cerebral infarction without residual deficits; Z87.442 Personal history of urinary calculi; Z90.710 Acquired absence of both cervix and uterus; Z98.890 Other specified postprocedural states; Z88.2 Allergy status to sulfonamides; Z88.1 Allergy status to other antibiotic agents; Z88.5 Allergy status to narcotic agent; Z88.8 Allergy status to other drugs, medicaments and biological substances; Z79.2 Long term (current) use of antibiotics; Z79.899 Other long term (current) drug therapy
CPT/HCPCS: 36415; 71045; 80053; 84484; 85025; 93005; 99285

== ENCOUNTER 2021-09-22 14:22 | Emergency (ER) | payer MEDICARE, MEDICAID ==
[~2021-09-22] VITALS: Ht 167.6 cm; Wt 123.0 kg
[~2021-09-22 14:22] MED LIST changes: +LISI5TAB22 PO
[2021-09-22 15:32] LABS: BASOPHILS % (AUTO) 0.1 % (0-1); EOSINOPHILS % (AUTO) 0 % (0-6); HEMATOCRIT 39.4 % (35.0-45.0); HEMOGLOBIN 13.7 g/dl (12.0-16.0); MEAN CORPUSCULAR HGB CONC 34.8 g/dL (33.0-36.5); MEAN CORPUSCULAR VOLUME 94.8 FL (78-98); MEAN PLATELET VOLUME 8.2 FL (7.4-10.4); MONOCYTES # (AUTO) 0.3 X10'3 (0-0.9); MONOCYTES % (AUTO) 3.6 % (2-12); NEUTROPHILS # (AUTO) 6.3 X10'3 (1.8-7.7); NEUTROPHILS % (AUTO) 73.3 % (42-75); PLATELET COUNT 275 X10'3 (140-440); RED BLOOD COUNT 4.16 X10'6 (4.20-5.60); RED CELL DISTRIBUTION WIDTH 13.1 % (11.5-14.5); WHITE BLOOD COUNT 8.6 X10'3 (4.5-11.0)
[2021-09-22 15:35] LABS: ALANINE AMINOTRANSFERASE 26 U/L (12-78); ALBUMIN 3.7 G/DL (3.4-5.0); ALBUMIN/GLOBULIN RATIO 1.1 (1.1-1.5); ALKALINE PHOSPHATASE 59 IU/L (46-116); ANION GAP 9 (8-16); ASPARTATE AMINO TRANSFERASE 11 U/L (10-37); BILIRUBIN,TOTAL 0.3 MG/DL (0.1-1.0); BLOOD UREA NITROGEN 9 MG/DL (7-18); BUN/CREATININE RATIO 8.4 (6.6-38.0); CALCIUM 8.6 MG/DL (8.5-10.1); CHLORIDE 106 MMOL/L (99-107); CREATININE 1.07 MG/DL (0.40-0.90); GLUCOSE 108 MG/DL (70-104); POTASSIUM 4.2 MMOL/L (3.5-5.1); SODIUM 142 MMOL/L (135-145); TOTAL CARBON DIOXIDE 27.3 MMOL/L (24-32); eGFR 55 ML/MIN
--- NOTE | 2021-09-22 16:00 | NUR ---
Patient's pain started at 1000 this morning. Patient c/o CP 06/18. Feels like an elephant sitting on my chest but also sharp. Patient has a left sided SEALS. Patient has no edema to extremeties. Patient was seen here last week for the same complaint. Patient has had a stress test. Patient is having an echocardiogram on Thursday. Continue to monitor.
[2021-09-22] MEDS ORDERED: nitroGLYCERIN 0.4mg SUBLingual tab SL PRN (16:15)
[2021-09-22] MEDS ORDERED: aspirin 81mg tab.chew PO ONE (16:15)
--- NOTE | 2021-09-22 17:15 | NUR ---
Patient is a hard stick. Success on 2nd try. Patient tolerated well. Continue to monitor.
[2021-09-22 17:25] VITALS: BP 139/75
== END 2021-09-22 18:00 | disposition home or self-care (01) ==
LOC: ER 14:23
DX: R07.89 Other chest pain (principal); R06.02 Shortness of breath; R20.0 Anesthesia of skin; R61 Generalized hyperhidrosis; R51.9 Headache, unspecified; E78.00 Pure hypercholesterolemia, unspecified; I10 Essential (primary) hypertension; J45.909 Unspecified asthma, uncomplicated; G89.29 Other chronic pain; M19.90 Unspecified osteoarthritis, unspecified site; Z86.14 Personal history of Methicillin resistant Staphylococcus aureus infection; Z79.2 Long term (current) use of antibiotics; Z79.899 Other long term (current) drug therapy; Z88.2 Allergy status to sulfonamides; Z88.1 Allergy status to other antibiotic agents; Z88.0 Allergy status to penicillin; Z88.5 Allergy status to narcotic agent
CPT/HCPCS: 36415; 71045; 80053; 83880; 84484; 85025; 93005; 99285

== ENCOUNTER 2022-02-15 21:00 | Emergency (ER) | payer MEDICARE, MEDICAID ==
[~2022-02-15] VITALS: Ht 167.6 cm; Wt 120.5 kg
[2022-02-15] MEDS ORDERED: predniSONE 20 mg tablet PO ONE (23:05)
[2022-02-15] MEDS ORDERED: ondansetron 4mg rapidly disintigrating tab PO ONE (23:05)
[2022-02-15] MEDS ORDERED: DOXYCYCLINE 100MG CAPSULE PO STA (23:41)
[2022-02-15] MEDS ORDERED: PRED20TA PO (23:41)
[2022-02-15] MEDS ORDERED: DOXY100C77 PO (23:41)
[2022-02-16 00:08] VITALS: BP 141/91
== END 2022-02-16 00:09 | disposition home or self-care (01) ==
LOC: ER 21:01
DX: J20.9 Acute bronchitis, unspecified (principal); Z20.822 Contact with and (suspected) exposure to COVID-19; J45.901 Unspecified asthma with (acute) exacerbation; R11.2 Nausea with vomiting, unspecified; E78.00 Pure hypercholesterolemia, unspecified; I10 Essential (primary) hypertension; J45.909 Unspecified asthma, uncomplicated; M19.90 Unspecified osteoarthritis, unspecified site; G89.29 Other chronic pain; Z86.14 Personal history of Methicillin resistant Staphylococcus aureus infection; Z86.73 Personal history of transient ischemic attack (TIA), and cerebral infarction without residual deficits; Z87.442 Personal history of urinary calculi; Z98.891 History of uterine scar from previous surgery; Z90.710 Acquired absence of both cervix and uterus; Z88.2 Allergy status to sulfonamides; Z88.1 Allergy status to other antibiotic agents; Z88.5 Allergy status to narcotic agent; Z88.8 Allergy status to other drugs, medicaments and biological substances; Z79.2 Long term (current) use of antibiotics; Z79.899 Other long term (current) drug therapy; E03.9 Hypothyroidism, unspecified
CPT/HCPCS: 71046; 87081; 87635; 87880; 99284; C9803; J7512

== ENCOUNTER 2022-03-19 14:59 | Emergency (ER) | payer MEDICARE, MEDICAID ==
[~2022-03-19] VITALS: Ht 167.6 cm; Wt 120.5 kg
[2022-03-19 15:38] VITALS: BP 154/98
== END 2022-03-19 17:53 | disposition home or self-care (01) ==
LOC: ER 15:00
DX: S80.211A Abrasion, right knee, initial encounter (principal); M25.561 Pain in right knee; M25.571 Pain in right ankle and joints of right foot; R07.89 Other chest pain; E78.00 Pure hypercholesterolemia, unspecified; I10 Essential (primary) hypertension; J45.909 Unspecified asthma, uncomplicated; M19.90 Unspecified osteoarthritis, unspecified site; G89.29 Other chronic pain; F41.9 Anxiety disorder, unspecified; F31.9 Bipolar disorder, unspecified; Z86.73 Personal history of transient ischemic attack (TIA), and cerebral infarction without residual deficits; Z87.442 Personal history of urinary calculi; Z86.14 Personal history of Methicillin resistant Staphylococcus aureus infection; Z90.710 Acquired absence of both cervix and uterus; Z98.890 Other specified postprocedural states; Z88.2 Allergy status to sulfonamides; Z88.5 Allergy status to narcotic agent; Z88.1 Allergy status to other antibiotic agents; Z88.8 Allergy status to other drugs, medicaments and biological substances; Z79.2 Long term (current) use of antibiotics; Z79.899 Other long term (current) drug therapy; W01.0XXA Fall on same level from slipping, tripping and stumbling without subsequent striking against object, initial encounter; Y93.01 Activity, walking, marching and hiking; Y92.89 Other specified places as the place of occurrence of the external cause; Y99.8 Other external cause status
CPT/HCPCS: 73564; 73610; 73630; 99284

== ENCOUNTER 2022-04-10 21:12 | Observation (INO) | payer MEDICARE, MEDICAID ==
[~2022-04-10] VITALS: Ht 167.6 cm; Wt 120.5 kg
[2022-04-10 22:36] LABS: BASOPHILS % (AUTO) 0.1 % (0-1); EOSINOPHILS % (AUTO) 0 % (0-6); HEMATOCRIT 39.1 % (35.0-45.0); HEMOGLOBIN 13.3 g/dl (12.0-16.0); LYMPHOCYTES # (AUTO) 2.5 X10'3 (1.1-4.8); LYMPHOCYTES % (AUTO) 29.2 % (21-51); MEAN CORPUSCULAR HEMOGLOBIN 31.6 PG (27.0-31.0); MEAN CORPUSCULAR HGB CONC 34.1 g/dL (33.0-36.5); MEAN CORPUSCULAR VOLUME 92.8 FL (78-98); MEAN PLATELET VOLUME 8.5 FL (7.4-10.4); MONOCYTES # (AUTO) 0.4 X10'3 (0-0.9); MONOCYTES % (AUTO) 4.7 % (2-12); NEUTROPHILS # (AUTO) 5.7 X10'3 (1.8-7.7); PLATELET COUNT 269 X10'3 (140-440); RED BLOOD COUNT 4.22 X10'6 (4.20-5.60); RED CELL DISTRIBUTION WIDTH 12.8 % (11.5-14.5); WHITE BLOOD COUNT 8.6 X10'3 (4.5-11.0)
[2022-04-10 22:47] LABS: APTT 28 SECONDS (22-32)
[2022-04-10 22:48] LABS: ALANINE AMINOTRANSFERASE 21 U/L (12-78); ALBUMIN 3.8 G/DL (3.4-5.0); ALBUMIN/GLOBULIN RATIO 1.2 (1.1-1.5); ALKALINE PHOSPHATASE 57 IU/L (46-116); ANION GAP 10 (8-16); ASPARTATE AMINO TRANSFERASE 14 U/L (10-37); BILIRUBIN,TOTAL 0.3 MG/DL (0.1-1.0); BLOOD UREA NITROGEN 9 MG/DL (7-18); BUN/CREATININE RATIO 9.3 (6.6-38.0); CALCIUM 8.9 MG/DL (8.5-10.1); CHLORIDE 104 MMOL/L (99-107); CREATININE 0.97 MG/DL (0.40-0.90); GLUCOSE 107 MG/DL (70-104); POTASSIUM 3.8 MMOL/L (3.5-5.1); SODIUM 139 MMOL/L (135-145); TOTAL CARBON DIOXIDE 24.7 MMOL/L (24-32); eGFR 62 ML/MIN
[2022-04-10] MEDS ORDERED: proCHLORperazine 10 MG/2 ml inj IV ONE (22:55)
[2022-04-10] MEDS ORDERED: ketorolac trometh. 30mg/ml inj. IV ONE (22:55)
[2022-04-10] MEDS ORDERED: dextrose 5%-1/2 normal saline 1,000 ML IV SCH (23:20)
[2022-04-10] MEDS ORDERED: mag hydrox/Alum hydrox/simeth 30ml oral suspension PO PRN (23:20)
[2022-04-10] MEDS ORDERED: HYDROcodone/acetaminophen 5mg/325mg tablet PO PRN (23:20)
[2022-04-10] MEDS ORDERED: ondansetron/PF 4mg/2ml inj IV PRN (23:20)
[2022-04-10] MEDS ORDERED: magnesium hydroxide 30ml (MOM) UD suspension PO PRN (23:20)
[2022-04-10] MEDS ORDERED: acetaminophen 325mg tablet PO PRN ×2 (23:20)
[2022-04-10] MEDS ORDERED: HYDROcodone/acetaminophen 10/325mg tab PO PRN (23:20)
[2022-04-10 23:53] LABS: HEMOGLOBIN A1C 5.3 % (4.5-6.2)
[2022-04-11 00:41] VITALS: BP 145/85
--- NOTE | 2022-04-11 00:42 | NUR ---
iv dc pt being discharged. dressing applied
[2022-04-11] MEDS ORDERED: docusate sod 100mg capsule PO SCH (08:00)
[2022-04-11] MEDS ORDERED: aspirin 325mg tablet, delayed-release (Ecotrin) PO SCH (08:00)
== END 2022-04-11 00:44 | disposition left against medical advice (07) ==
LOC: ER 21:13 → ED HOLD 23:24
PROVIDERS: ADMIT Internal Medicine; ATTEND Internal Medicine
DX: I63.9 Cerebral infarction, unspecified (principal); E78.00 Pure hypercholesterolemia, unspecified; I10 Essential (primary) hypertension; J45.909 Unspecified asthma, uncomplicated; F31.9 Bipolar disorder, unspecified; F41.8 Other specified anxiety disorders; F41.0 Panic disorder [episodic paroxysmal anxiety]; Z90.710 Acquired absence of both cervix and uterus; Z88.0 Allergy status to penicillin; Z86.73 Personal history of transient ischemic attack (TIA), and cerebral infarction without residual deficits; Z87.442 Personal history of urinary calculi; Z79.899 Other long term (current) drug therapy
CPT/HCPCS: 36415; 70450; 71045; 80053; 83036; 83880; 84484; 85025; 85610; 85651; 85730; 96361; 96374; 96375; 99285; G0378; J0780; J1885; J7042

== ENCOUNTER 2023-10-27 11:51 | Emergency (ER) | payer MEDICARE, MEDICAID ==
[~2023-10-27] VITALS: Ht 167.6 cm; Wt 96.8 kg
[~2023-10-27 11:51] MED LIST changes: +CLIN-214 PO; -CLIN150C8 PO
[2023-10-27 11:54] VITALS: BP 167/84; PULSE 81; TEMP 97.6; O2SAT 99
[2023-10-27 12:18] VITALS: RESP 18
== END 2023-10-27 16:40 | disposition home or self-care (01) ==
LOC: ER 11:52
DX: K59.00 Constipation, unspecified (principal); E78.00 Pure hypercholesterolemia, unspecified; J45.909 Unspecified asthma, uncomplicated; F31.9 Bipolar disorder, unspecified; F20.9 Schizophrenia, unspecified; Z88.2 Allergy status to sulfonamides; Z88.1 Allergy status to other antibiotic agents; Z79.899 Other long term (current) drug therapy; Z88.8 Allergy status to other drugs, medicaments and biological substances
CPT/HCPCS: 99282

== ENCOUNTER 2023-11-05 10:37 | Emergency (ER) | payer MEDICARE, MEDICAID ==
[~2023-11-05] VITALS: Ht 167.6 cm; Wt 98.3 kg
[2023-11-05] MEDS ORDERED: AZI25OT PO (11:11)
[2023-11-05 11:22] VITALS: BP 123/78; PULSE 81; RESP 16; TEMP 98; O2SAT 98
[2023-11-05 11:39] LABS: STREP A SCREEN NEGATIVE (Neg)
== END 2023-11-05 11:24 | disposition home or self-care (01) ==
LOC: ER 10:37
DX: J20.9 Acute bronchitis, unspecified (principal); E78.00 Pure hypercholesterolemia, unspecified; I10 Essential (primary) hypertension; J45.909 Unspecified asthma, uncomplicated; F31.9 Bipolar disorder, unspecified; G89.29 Other chronic pain; M54.9 Dorsalgia, unspecified; Z86.14 Personal history of Methicillin resistant Staphylococcus aureus infection; Z88.2 Allergy status to sulfonamides; Z88.5 Allergy status to narcotic agent; Z79.899 Other long term (current) drug therapy
CPT/HCPCS: 87081; 87880; 99283